=== PATIENT | female | born 1955 | race Caucasian/White ===

== ENCOUNTER 2017-10-30 05:16 | Inpatient (IN) | payer BC, OTHER, SELFPAY ==
[~2017-10-30] VITALS: Ht 162.6 cm; Wt 108.9 kg
--- NOTE | ~2017-10-30 | O ---
[facility] [address] OPERATIVE REPORT Name: LESLEY BISHOP Inderjit Room #: 402-P [facility] IN ..#: [id number] Admission: 10/30/17 Attend Phys: Bobby Vega MD Discharge: 11/03/17 Date of : 51 Report #: [id number] THIS REPORT FOR: //name// CC: JOELLE Vega Physician staff DATE OF SERVICE: 10/30/2017 PREOPERATIVE DIAGNOSES: Right foot nonhealing wound with a Charcot arthropathy and a lateral hindfoot osteophyte. POSTOPERATIVE DIAGNOSES: Right foot nonhealing wound with a Charcot arthropathy and a lateral hindfoot osteophyte. PROCEDURE: Right foot irrigation and debridement with osteophyte excision. SURGEON: Bobby Vega M.D. ASSOCIATE PROFESSOR OF LIBRARY MEDIA: ESME Galvez. ANESTHESIA: General. ESTIMATED BLOOD LOSS: Minimal. DRAINS: One Italo drain was placed. TOURNIQUET TIME: 20 minutes. COMPLICATIONS: There were no complications. DESCRIPTION OF PROCEDURE: The patient brought to the operating room where she was placed under general anesthesia. Once under adequate general anesthesia, her right lower extremity was prepped and draped in sterile manner. The extremity was elevated and tourniquet placed to 250 mL. The patient's lateral hindfoot ulcer was then excised sharply with a 15 blade. This is taken directly down to the lateral bone and osteophyte at the lateral hindfoot in the area of the cuboid and the calcaneus anterior process. This was then subsequently exposed. A sagittal saw was then utilized to transect the bone, which was then removed with a rongeur. Further debridement with a rongeur was achieved as well of any necrotic appearing tissue. Once complete, the wound was irrigated copiously and closed over a [place] drain with 2-0 nylon suture in a simple stitch manner. The wound was then dressed with Xeroform, 4 x 4s, and a sterile soft compressive dressing was placed. Tourniquet was let down approximately 20 minutes. Toes were pink and warm with good capillary refill. There were no [facility] [address] [place] [address] OPERATIVE REPORT Name: LESLEY BISHOP Room #: 402-P [facility] IN .R.#: [id number] Admission: 10/30/17 Attend Phys: Bobby Vega MD Discharge: 11/03/17 Date of : 51 Report #: [id number] complications from the procedure. The patient tolerated procedure well and went to the recovery room without incident. <ELECTRONICALLY SIGNED> By: Bobby Vega MD 11/11/17 1423 1254 1323 Bobby Vega MD /nt
--- NOTE | ~2017-10-30 | S ---
[facility] [place] [address] SURGICAL PATH RPT PROCEDURE Name: AMY BISHOP Room #: 402-P ADM IN M.R.#: [id number] Admission: 10/30/17 Date of : 51 Discharge: Report #: [id number] Path Case #: [id number] PATHOLOGY REPORT COLLECTION DATE: 10/30/2017 RECEIVED DATE: 10/30/2017 SUBMITTING PHYS: Dr. Bobby Vega OTHER PHYS: Dr. Moreno (Paul Sotelo SPECIMEN(S) RECEIVED: A.Right foot osteophyte * * * * * * * * * * * * FINAL DIAGNOSIS: Bone and soft tissue, right foot osteophyte, excision: - Fragments of reactive chondro-osseous tissue associated with remodeling, history of bone spur. - Fragments of dense fibrous tissue with mild chronic inflammation. (IUV:pit; 11/03/2017) PATHOLOGIST: Malika Chow M.D. REPORT ELECTRONICALLY SIGNED BY: Malika Chow M.D. DATE/TIME: 11/03/2017 13:58 * * * * * * * * * * * * GROSS PATHOLOGY: Received fresh labeled "Amy Bishop, right foot osteophyte" is a 1.6 x 1.2 x 0.8 cm portion of rehman-white bone, which is a smooth resection margin (inked black). Attached to the bone is a portion of rehman-white soft tissue measuring 3.2 x 0.6 x 0.5 cm. No gross abnormalities are identified. Full Stack Software Developer sections of the specimen are submitted in cassette A1 following decalcification. ([facility] [place]; 10/30/2017) CLINICAL HISTORY: Excision bone spur, right foot ulcer. INITIAL CPT CODE(S): A; 97364, 76704 Professional services performed by [facility] at [facility] [address] , [place] [address] Technical services performed by [facility] at [address] [place] [address]. [facility] [address] [place] [address] SURGICAL PATH RPT PROCEDURE Name: AMY BISHOP Room #: 402-P [facility] IN M.R.#: [id number] Admission: 10/30/17 Date of : 51 Discharge: Report #: [id number] Path Case #: [id number] [facility] [address] [place] [address] PHONE: [phone] DIRECTOR: Maxi Valdez M.D. * * * END OF REPORT * * *
--- NOTE | ~2017-10-30 | EKG ---
[address] [place] [address] ELECTROCARDIOGRAM REPORT Name: LESLEY BISHOP Room #: 402-P ADM IN M.R.#: [id number] Admission: 10/30/17 Attend Phys: Bobby Vega MD Discharge: Date of : 51 Report #: [id number] THIS REPORT FOR: //name// [facility] Test Date: 2017-10-30 Test Time: 09:51:56 Pat Name: LESLEY BISHOP Department: Room: [facility] Gender: F Intermediate Project Manager: FRANKLYN : 1955 Requested By: Jim Joe Order Number: [id number] MD: Thee Snyder Measurements Intervals Newton Rate: 81 P: 22 PA: 142 QRS: 49 QRSD: 88 T: 44 QT: 374 QTc: 434 Interpretive Statements Sinus rhythm Borderline ST elevation, lateral leads Baseline wander in lead(s) V3 No previous ECG available for comparison Electronically Signed On 10-30-2017 15:05:40 FURNACE CONVERTER by Thee Snyder [email or web address] <ELECTRONICALLY SIGNED> By: Thee Snyder MD 10/30/17 1505 0 0 Thee Snyder MD /RITU
--- NOTE | ~2017-10-30 | HC ---
[facility] [place] [address] CONSULTATION Name: LESLEY BISHOP Room #: 402-P ADM IN M.R.#: [id number] Admission: 10/30/17 Attend Phys: Bobby Vega MD Discharge: Date of : 51 Report #: [id number] THIS REPORT FOR: //name// CC: JOELLE Vega Physician staff REASON FOR CONSULTATION: I was asked to evaluate concerning right Charcot foot with nonhealing wound. HISTORY OF PRESENT ILLNESS: The patient was a 62-year-old, underlying diabetes, diagnosed with a Charcot foot on the right in 2015. Since June of this past year, she has had a nonhealing wound over the lateral hindfoot. She has tried offloading this along with support braces and boot. She has been completely nonweightbearing for the last 6 weeks. She has tried two different oral antibiotics over the last month with no improvement. She finished her course of antibiotics about 10 days ago. Today, she underwent surgical debridement of her hindfoot with an osteophyte resection. Wound was closed with drain in place. No fever, chills or sweats. Blood glucose levels have been satisfactory. REVIEW OF SYSTEMS: Notes no cardiopulmonary, GI or complaints. ALLERGIES: FOSINOPRIL with cough. MEDICATIONS: As noted under MAR, which were reviewed, now on cefazolin. PAST MEDICAL HISTORY: Diabetes, hypertension, epilepsy, lumpectomy, right breast, asthma, bladder sling procedure, hysterectomy, upper dentures. FAMILY HISTORY: Noncontributory. SOCIAL HISTORY: Past smoker, no significant alcohol intake. Works in doctor's office. Lives in [place], [place], outside of [place]. REVIEW OF SYSTEMS: As noted above. PHYSICAL EXAMINATION: VITAL SIGNS: Afebrile and hemodynamically stable. GENERAL: She was alert and cooperative and pleasant, no acute distress. SKIN: Unremarkable. LYMPH: Unremarkable. EYES: Unremarkable. MOUTH: Unremarkable. CHEST: Clear. HEART: Regular. ABDOMEN: Soft, nontender. [facility] [address] [place] [address] CONSULTATION Name: LESLEY BISHOP Inderjit Room #: 402-P [facility] IN M.R.#: [id number] Admission: 10/30/17 Attend Phys: Bobby Vega MD Discharge: Date of : 51 Report #: [id number] EXTREMITIES: Pulses in the right popliteal were normal. Right foot was wrapped from surgery. Dressing was dry. Toes were warm with good capillary refill. Sensation intact. She had reasonable motion in the toes. LABORATORY STUDIES: Sodium 139, potassium 4.4, bicarbonate 28, creatinine 0.8, glucose running in the low 100s. IMPRESSION AND PLAN: Right foot nonhealing wound due to Charcot arthropathy and lateral hindfoot osteophyte. She is postop day today, right foot irrigation and debridement with osteophyte excision. I do not have her preoperative cultures. Culture was obtained today at the time of surgery. We will recommend obtaining microbiology reports from the outpatient clinic. Continue with cefazolin. Anticipate outpatient antibiotic therapy following discharge. Duration of therapy will be determined upon her progress. <ELECTRONICALLY SIGNED> By: Cory Rodriges MD 10/31/17 1455 1708 2222 Cory Rodriges MD /nt
[~2017-10-30 05:16] MED LIST: ALPHAGAN P5 ML OPHTHALMIC; ASPIR 8181 MG PO; B COMPLEX1 EACH PO; BENICAR40 MG PO; CENTRUM SILVER1 EAC4 PO; HYDROCHLOROTHIA25 M1 PO; IBUPROFEN 200200 M1 PO; KEPPRA 500 MG500 M1 PO; LYRICA 50 MG50 MG PO; MAGOX 400400 MG PO; METFORMIN HCL500 MG PO; POTASSIUM20 PO; TUMS PO; VITAMIN D1000 UNIT PO; XALATAN2.5 M1 OPHTHALMIC
[2017-10-30 10:12] LABS: CALCIUM 9.4 mg/dL (8.5-10.1); CREATININE 0.8 mg/dL (0.6-1.0); POTASSIUM 4.4 mmol/L (3.5-5.1)
[2017-10-30 10:15] VITALS: BP 110/66
[2017-10-30 14:30] VITALS: BP 108/52
[2017-10-30 15:00] VITALS: BP 115/60
[2017-10-30 15:30] VITALS: BP 122/55
[2017-10-30 16:30] VITALS: BP 140/61
[2017-10-30 19:50] VITALS: BP 118/52
[2017-10-31 03:49] LABS: ABSOLUTE NEUTROPHILS 5.1 thou/uL (1.4-8.2); BASOPHILS 0.5 % (0.0-2.0); EOSINOPHILS 2.2 % (0.0-3.0); HEMATOCRIT 29.2 % (37.0-47.0); HEMOGLOBIN 9.5 gm/dL (12.0-15.0); LYMPHOCYTES 33.2 % (24.0-44.0); MCH 29.9 pg (26.0-34.0); MCHC 32.7 g/dL (28.0-37.0); MCV 91.6 fL (80.0-100.0); MONOCYTES 11.6 % (1.0-8.0); PLATELET COUNT 227 thou/uL (150-400); POLYS 52.5 % (36.0-66.0); RBC 3.18 mil/uL (4.20-5.00); RDW 13.4 % (10.5-14.5); WBC 9.8 thou/uL (4.0-11.0)
[2017-10-31 04:04] LABS: CALCIUM 8.7 mg/dL (8.5-10.1); CREATININE 0.9 mg/dL (0.6-1.0); POTASSIUM 4.4 mmol/L (3.5-5.1)
[2017-10-31 04:29] VITALS: BP 92/56
[2017-10-31 08:00] VITALS: BP 124/71
[2017-10-31 15:41] VITALS: BP 112/59
[2017-10-31 19:47] VITALS: BP 139/65
[2017-11-01 03:26] VITALS: BP 111/58
[2017-11-01 08:12] VITALS: BP 132/54
[2017-11-01 16:44] VITALS: BP 143/67
[2017-11-01 19:01] VITALS: BP 139/55
[2017-11-02 04:00] VITALS: BP 121/63
[2017-11-02 10:57] VITALS: BP 140/62
[2017-11-02 16:58] VITALS: BP 150/52
[2017-11-02 20:50] VITALS: BP 142/62
[2017-11-03 05:05] VITALS: BP 140/67
[2017-11-03 07:52] VITALS: BP 146/76
[2017-11-03 14:15] VITALS: BP 146/76
[2017-11-03 14:20] VITALS: BP 146/76
[2018-04-21] MEDS ORDERED: KEPPRA750 MG PO ×2 (08:32)
[2018-04-21] MEDS ORDERED: LYRICA100 MG PO (08:34)
== END 2017-11-03 16:37 | disposition home health service (06) | DRG 502 ==
LOC: TBA 05:16 → PRE 13:37 → 4N 14:30 → PRE 16:14 → ENTRNSPT 11-03 16:21 → 4N 11-03 16:37
PROVIDERS: Anesthesiology; Orthopaedic Surgery Foot and Ankle Surgery
DX: M14.671 Charcot's joint, right ankle and foot (principal); G40.909 Epilepsy, unspecified, not intractable, without status epilepticus; I10 Essential (primary) hypertension; E11.42 Type 2 diabetes mellitus with diabetic polyneuropathy; H40.9 Unspecified glaucoma; E11.621 Type 2 diabetes mellitus with foot ulcer; L97.519 Non-pressure chronic ulcer of other part of right foot with unspecified severity; M25.774 Osteophyte, right foot; Z88.8 Allergy status to other drugs, medicaments and biological substances; Z87.891 Personal history of nicotine dependence
CPT/HCPCS: 10790; 27000; 50010; 50101; 50386; 50951; 56525; 57091; 62110; 62900; 70005

== ENCOUNTER 2018-04-24 05:32 | Inpatient (IN) | payer BC, OTHER, SELFPAY ==
[~2018-04-24] VITALS: Ht 162.6 cm; Wt 108.9 kg
--- NOTE | ~2018-04-24 | O ---
[facility] [place] [address] OPERATIVE REPORT Name: LESLEY BISHOP Room #: 150-2 [facility]#: [id number] Admission: 04/24/18 Attend Phys: Bobby Vega MD Discharge: Date of : 51 Report #: [id number] THIS REPORT FOR: //name// CC: FAM unknown Bobby Vega DATE OF SERVICE: 04/24/2018 PREOPERATIVE DIAGNOSIS: Right hindfoot Charcot arthropathy. POSTOPERATIVE DIAGNOSIS: Right hindfoot Charcot arthropathy. PROCEDURE: Right tibiotalar calcaneal arthrodesis. SURGEON: Bobby Vega MD RN RENAL: Tamela Amin. ANESTHESIA: General. ESTIMATED BLOOD LOSS: Minimal. DRAINS: No drains. TOURNIQUET TIME: 90 minutes. DESCRIPTION OF PROCEDURE: The patient brought to the operating room where she was placed under general anesthesia. Once under adequate general anesthesia, her right lower extremity was prepped and draped in sterile manner. The extremity was elevated, exsanguinated, tourniquet placed to 300 mmHg. A lateral incision along the distal fibula was made. This was approximately 12 cm in length and extended along the sinus tarsi. The exposure was then made of the distal fibula sharply with a 15 blade. A sagittal saw was used to transect this just proximal to the tibiotalar joint and any soft tissue was released from the bone with a 15 blade and the bone was then subsequently removed. This was then morselized on the back table for bone graft. The tibiotalar joint and subtalar joint were then subsequently prepared utilizing curettes and osteotomes to remove any cartilage from the subchondral bone. Good bleeding subchondral bone was achieved in each of the joints. Once these were prepared, the bone graft as well as the synthetic graft from [employer] was then placed into each of the joints. Subsequent to this, a guidewire for the intramedullary nail was then placed from the plantar foot through a separate 2 cm incision. Blunt dissection down to the bone. The guidewire for the Synthes retrograde intramedullary nail was then placed. Subsequently, the opening reamer was utilized to start the process and subsequent reaming with the reamers was achieved to a size 11 reamer. The size 10 long intramedullary nail was then placed. Utilizing [address] [address] OPERATIVE REPORT Name: LESLEY BISHOP Inderjit Room #: 150-2 [facility]..#: [id number] Admission: 04/24/18 Attend Phys: Bobby Vega MD Discharge: Date of : 51 Report #: [id number] fluoroscopy for guidance, the 2 posterior to anterior calcaneal screws were then placed through a separate 2 cm incision in the posterior heel. The proximal locking screws were then placed as well. Excellent fixation was achieved and excellent alignment of the foot. Once complete, the wound was irrigated copiously. Final fluoroscopic images were taken. The wound was irrigated copiously and closed with 2-0 Vicryl in the deep and subcutaneous tissues and melinda were used for the skin. The wounds were dressed with Xeroform, 4 x 4s, and sterile soft compressive dressing was placed. Tourniquet was let down at approximately 90 minutes. Short leg cast was placed. Toes were pink and warm with good capillary refill. There were no complications from the procedure. The patient tolerated the procedure well and went to the recovery room without incident. By: 1416 1515 Bobby Vega MD /edilberto
[~2018-04-24 05:32] MED LIST changes: +KEPPRA750 MG PO; +LYRICA100 MG PO
[2018-04-24 10:50] VITALS: BP 113/58
[2018-04-24 10:57] LABS: CALCIUM 9.5 mg/dL (8.5-10.1); CREATININE 0.9 mg/dL (0.6-1.0); POTASSIUM 4.5 mmol/L (3.5-5.1)
[2018-04-24 11:02] LABS: ALBUMIN 3.4 g/dL (3.4-5.0); TOTAL BILIRUBIN 0.2 mg/dL (<0.1-1.0); TOTAL PROTEIN 7.9 g/dL (6.4-8.2)
[2018-04-24 17:40] VITALS: BP 118/71
[2018-04-24 19:40] VITALS: BP 124/76
[2018-04-24 19:59] VITALS: BP 129/69
[2018-04-24 20:56] VITALS: BP 125/70
[2018-04-25 04:15] VITALS: BP 129/66; BP 154/100
[2018-04-25 04:31] LABS: HEMATOCRIT 30.7 % (37.0-47.0)
[2018-04-25 04:45] LABS: POTASSIUM 4.8 mmol/L (3.5-5.1)
[2018-04-25 08:22] VITALS: BP 98/44
[2018-04-25 15:33] VITALS: BP 114/58
[2018-04-25 19:14] VITALS: BP 103/46
[2018-04-26 03:44] VITALS: BP 92/46
[2018-04-26 05:07] LABS: HEMATOCRIT 27.7 % (37.0-47.0); HEMOGLOBIN 9.3 gm/dL (12.0-15.0); MCH 30.6 pg (26.0-34.0); MCHC 33.6 g/dL (28.0-37.0); MCV 91.1 fL (80.0-100.0); RBC 3.04 mil/uL (4.20-5.00); RDW 13.9 % (10.5-14.5); WBC 9.3 thou/uL (4.0-11.0)
[2018-04-26 05:22] LABS: ALBUMIN 2.8 g/dL (3.4-5.0); CALCIUM 8.6 mg/dL (8.5-10.1); POTASSIUM 3.9 mmol/L (3.5-5.1); TOTAL BILIRUBIN 0.1 mg/dL (<0.1-1.0); TOTAL PROTEIN 6.7 g/dL (6.4-8.2)
[2018-04-26 08:00] VITALS: BP 111/68
[2018-04-26 16:00] VITALS: BP 131/54
[2018-04-26 19:18] VITALS: BP 165/51
[2018-04-27 02:40] VITALS: BP 146/54
[2018-04-27 08:00] VITALS: BP 137/83
[2018-04-27] MEDS ORDERED: ENOXAPARIN40 MG/0.1 SUBQ (10:53)
[2018-04-27 16:00] VITALS: BP 137/51
[2018-04-27 19:15] VITALS: BP 135/62
[2018-04-28 03:21] VITALS: BP 113/58
[2018-04-28 07:43] VITALS: BP 129/56
[2018-04-28 16:19] VITALS: BP 176/63
[2018-04-28 16:21] VITALS: BP 136/52
[2018-04-28 19:26] VITALS: BP 156/62
[2018-04-28 21:29] VITALS: BP 148/66
[2018-04-29 07:15] VITALS: BP 124/61
[2018-04-29 19:38] VITALS: BP 131/68
[2018-04-30 07:20] VITALS: BP 130/61
[2018-04-30] MEDS ORDERED: OXYCODONE-APAP1 EAC6 PO (11:56)
== END 2018-04-30 18:43 | DRG 983 ==
LOC: TBA 05:32 → 4W 05:32 → OR 05:32 → 4W 17:48 → OR 17:49 → SICU 04-28 21:19 → ENTRNSPT 04-30 16:34 → SICU 04-30 18:43
PROVIDERS: Hospitalist; Orthopaedic Surgery Foot and Ankle Surgery
PROC: 0SGF0KZ Fusion of Right Ankle Joint with Nonautologous Tissue Substitute, Open Approach (ICD-10-PCS; principal; 2018-04-24)
DX: E11.610 Type 2 diabetes mellitus with diabetic neuropathic arthropathy (principal); E11.65 Type 2 diabetes mellitus with hyperglycemia; G40.909 Epilepsy, unspecified, not intractable, without status epilepticus; M21.171 Varus deformity, not elsewhere classified, right ankle; M25.774 Osteophyte, right foot; I10 Essential (primary) hypertension; Z88.8 Allergy status to other drugs, medicaments and biological substances; Z90.710 Acquired absence of both cervix and uterus; Z79.899 Other long term (current) drug therapy; Z79.82 Long term (current) use of aspirin
CPT/HCPCS: 10047; 15002; 50010; 50101; 50386; 50635; 51412; 53000; 53023; 56524; 57091; 62110; 62900; 70005